=== PATIENT | female | born 1960 | race Caucasian/White ===

== ENCOUNTER → 2017-09-19 15:56 | Outpatient (CLI) | payer OTHER, SELFPAY ==
--- NOTE | 2017-09-19 15:59 | BI_ITS ---
MAMMOGRAPHY - BILATERAL SCREENING REASON FOR EXAM: Female, 56 years old. Routine annual screening examination. PERTINENT HISTORY: Sister with breast cancer. History of prior bilateral breast reduction surgery. TECHNIQUE: Digital bilateral breast cristofer (3D mammographic acquisition) in the CC and MLO projections. 2-D mediolateral oblique (MLO) and craniocaudad (CC) views of both breasts were obtained. CAD: Full Field Digital Mammography with Computer Added Detection was performed. COMPARISON: Comparison is made with prior study dated August 25, 2016 and July 13, 2015. FINDINGS: Breast Composition: The breasts are almost entirely fatty. There are no dominant masses or suspicious calcifications. Once again, tissue clip markers are seen in both breast from prior biopsies. Since prior study, the patient underwent a biopsy of the right retroareolar nodular density. Retroareolar nodular density is not seen at this time.. No other significant abnormalities are identified. There has been no significant change since the prior study. BI/SCREENING MAMM (CAD), BILAT IMPRESSION: Stable bilateral screening mammogram. Yearly follow-up mammogram recommended. (A) ASSESSMENT CATEGORY: BIRADS Category 2: Benign. A letter regarding these results will be sent to the patient by the facility within 30 days. Approximately 10% of breast cancers are not detected by mammography. A normal mammogram should not delay biopsy of a clinically suspicious abnormality. [id number] Electronically Signed: Segundo Farr MD at 10:04 EDT Tel [phone], Service support ,
== END ==
PROVIDERS: Family Provider Family Medicine; PCP Family Medicine; Visit Provider Obstetrics & Gynecology
DX: Z12.31 Encounter for screening mammogram for malignant neoplasm of breast (principal)
CPT/HCPCS: 77063; 77067

== ENCOUNTER → 2018-01-02 10:47 | Outpatient (CLI) | payer OTHER, SELFPAY ==
--- NOTE | 2018-01-02 10:58 | EKG12_ITS ---
Test Reason : PRE OP Blood Pressure : / mmHG Vent. Rate : 079 BPM Atrial Rate : 079 BPM P-R Int : 168 ms QRS Dur : 078 ms QT Int : 372 ms P-R-T Axes : 056 -15 057 degrees QTc Int : 426 ms Normal sinus rhythm Possible Left atrial enlargement Low voltage QRS Borderline ECG Confirmed by DULCE SWANSON, MONTY ([id number]), material expeditor SEKOU ORTIZ ([id number]) on 01/04/2018 1:43:18 PM Referred By: Rolando Quevedo Confirmed By:MONTY CARDONA MD
[2018-01-02 11:06] LABS: Hematocrit 43.3 % (37-47); Hemoglobin 15.2 g/dl (12.0-15.0); Mean Corp Hgb Conc 35.1 g/gl (32-36); Mean Corpuscular Volume 88.4 fL (81-99); Mean Platelet Vol. 10.7 fl (6.2-12.0); Platelet Count 186 K/mm3 (150-450); RBC Distribution Width CV 12.8 % (11.6-14.6); RBC Distribution Width SD 41.4 fl (35.1-43.9); White Blood Count 7.3 K/mm3 (4.4-11.0)
[2018-01-02 11:10] LABS: Scan Indicated on CBC? Y/N NO
[2018-01-02 11:37] LABS: Anion Gap 5 (5-15); BUN 21 mg/dL (7-18); BUN/Creat Ratio 19.8 RATIO (10-20); Calcium,Total 9.3 mg/dL (8.5-10.1); Chloride 108 mmol/L (98-107); Creatinine, Serum 1.06 mg/dL (0.55-1.02); EST Glomerular Filtration Rate 56 mL/min (>60); Est Glom Filt Rate - Afr Amer 68 mL/min (>60); Glucose 90 mg/dL (74-106); Potassium 4.1 mmol/L (3.5-5.1); Sodium Level 143 mmol/L (136-145)
== END ==
PROVIDERS: Family Provider Family Medicine; PCP Family Medicine; Visit Provider Physician Assistant
DX: Z01.818 Encounter for other preprocedural examination (principal)
CPT/HCPCS: 36415; 80048; 85027; 93005

== ENCOUNTER → 2018-03-08 11:57 | Outpatient (CLI) | payer OTHER, SELFPAY ==
--- NOTE | 2018-03-08 | LES_PTH ---
PATIENT: RAYMUNDO ULLOA LOC: [facility] U#:[id number] AGE/SX: 64/F ROOM: RE03/08/[address]: Dr. Bree Carrion MD : 1960 BED: DIS: SPEC #: [id number] RECD: 03/08/18 15:53 STATUS: ANDRAE DANIEL #: [id number] KULWANT: 03/08/18 00:[address]: Bree Carrion DEPT: SURGICAL PATHOLOGY RECD BY: Omid Powell Tissues: Temporal region Procedures: Surgery Specimen Level IV HEADER OPERATION: Suspicious lesion removal PRE-OP DIAGNOSIS: Suspicious lesion TISSUE SUBMITTED: Right anabaptist lesion removal MICROSCOPIC DIAGNOSIS Skin lesion of right anabaptist, biopsy: Benign keratosis, mildly inflamed. AM:jennifer 03/12/18 MICROSCOPIC DESCRIPTION Slides are reviewed. GROSS DESCRIPTION Received in fixative is one container labeled with the patient's name and designated right anabaptist. The specimen consists of a piece of young-white skin measuring 0.5 x 0.2 x 0.1 cm. The entire specimen is submitted in one cassette. / SJ:rg 03/11/18 TC:5 [facility]: [id number]
== END ==
PROVIDERS: Family Provider Family Medicine; PCP Family Medicine; Visit Provider Family Medicine
DX: L98.8 Other specified disorders of the skin and subcutaneous tissue (principal)
CPT/HCPCS: 88305

== ENCOUNTER → 2018-10-16 | Outpatient (CLI) | payer OTHER, SELFPAY ==
--- NOTE | 2018-10-16 11:01 | BI_ITS ---
MAMMOGRAPHY - BILATERAL SCREENING REASON FOR EXAM: Female, 57 years old. Routine annual screening examination. PERTINENT HISTORY: Sister with breast cancer. History of prior bilateral breast reduction and left excisional breast biopsy. TECHNIQUE: Digital bilateral breast cristofer (3D mammographic acquisition) in the CC and MLO projections. 2-D mediolateral oblique (MLO) and craniocaudad (CC) views of both breasts were obtained. CAD: Full Field Digital Mammography with Computer Added Detection was performed. COMPARISON: Comparison is made with prior study dated September 19, 2017 and August 25, 2016. FINDINGS: Breast Composition: The breasts are almost entirely fatty. There are no dominant masses or suspicious calcifications. Stable post surgical changes in the retroareolar region of the right breast in keeping with history of prior excisional biopsy. A tissue clip marker is seen within the small nodular density in the retroareolar region of the right breast. A tissue clip marker is also seen in the upper deep lateral portion of the left breast. No other significant abnormalities are identified. There has been no significant change since the prior study. BI/SCREENING MAMM (CAD), BILAT IMPRESSION: Stable bilateral screening mammogram. Yearly follow-up mammogram recommended. (A) ASSESSMENT CATEGORY: BIRADS Category 2: Benign. A letter regarding these results will be sent to the patient by the facility within 30 days. Approximately 10% of breast cancers are not detected by mammography. A normal mammogram should not delay biopsy of a clinically suspicious abnormality. [id number] Electronically Signed: Segundo Farr, at 15:06 EDT , Service support ,
== END | disposition home or self-care (01) ==
LOC: OPBI 10:59
PROVIDERS: Family Provider Family Medicine; PCP Family Medicine; Referring Provider Obstetrics & Gynecology; Visit Provider Obstetrics & Gynecology
DX: Z12.31 Encounter for screening mammogram for malignant neoplasm of breast (principal)
CPT/HCPCS: 77063; 77067

== ENCOUNTER 2019-05-02 13:35 | Emergency (ER) | payer OTHER, SELFPAY ==
[2019-05-02 13:37] VITALS: BP 115/75; PULSE 90; RESP 16; TEMP 36.4; O2SAT 99; BMI 23.6
--- NOTE | 2019-05-02 14:17 | RAD_ITS ---
STUDY: X-RAY - RIGHT KNEE REASON FOR EXAM: Female, 58 years old. Pain following injury. TECHNIQUE: 4 view(s) of the knee. COMPARISON: None. FINDINGS: Normal visualized distal femur. Normal visualized proximal tibia and fibula. Normal proximal tibiofibular articulation. Normal medial femorotibial compartment. Normal lateral femorotibial compartment. Normal patellofemoral articulation. The soft tissue structures are unremarkable. RAD/Knee 4 or More Views IMPRESSION: Normal x-ray examination of the knee. Electronically Signed: Segundo Farr, at 15:04 EST , Service support ,
--- NOTE | 2019-05-02 15:13 | ED.VISSUMM ---
- ER Visit Summary Date of Service: 05/02/19 Chief Complaint: [Right knee injury] History of Present Illness: The patient is a 58 F [presents the emergency department complaint of a right knee injury that occurred 3 days ago. Patient states that she was coming down the steps when she felt like her knee sort of gave out. Patient continues to complain of pain with standing from seated position as well as with walking up or down steps. Patient felt that may be at one point her patella felt like it needed a pop. She has an appointment scheduled with orthopedics but not till May.] Physical Examination: [HEENT-PERRLA, EOMI. Cranial nerves II through XII grossly intact. TMs clear. Mucous membranes moist. No adenopathy. Cardiovascular-regular rate and rhythm without murmur or ectopy Lungs-clear to auscultation, chest wall stable without crepitus or subcu emphysema Abdomen-normoactive bowel sounds, soft, nontender, no rebound or rigidity, no peritoneal signs. Extremities-intact ?4, normal range of motion, normal pulses, atraumatic area of the right knee-there is no effusion. There is no erythema or warmth. Patient has good range of motion flexion extension of the knee. She is neurovascular intact distally. Ligamentously stable. Negative Lockman's test.] Test Results: [The left knee obtained showed no fractures. No effusion noted.] Emergency Department Course and Treatment: [Was given a knee immobilizer] Treatment Plan: [Patient to use ibuprofen or Tylenol for discomfort. Patient to use her knee immobilizer for support. Patient to follow-up with orthopedics.] Patient understands I cannot rule out a ligamentous injury or meniscal injury and she may need further evaluation with possibly including MRI to evaluate further. Disposition: [Discharged home in stable condition.] Impression: Right knee sprain-possible internal derangement. This note was generated with [employer] dictation software. It may contain incorrect words, spelling, and punctuation that were not noted in review of the chart prior to signing ED Disposition - Plan for ED Patient: Instructions: KNEE PAIN, Meniscus Injury (Possible) Referrals: Bree Carrion MD [Primary Care Provider] - Jlues Garza MD [STAFF PHYSICIAN] - 5-7 Days
[2019-05-02 16:08] VITALS: BP 133/62; PULSE 74; RESP 16; O2SAT 99
== END 2019-05-02 16:09 | disposition home or self-care (01) ==
LOC: ED 14:07
PROVIDERS: Emergency Provider Emergency Medicine; Family Provider Family Medicine; PCP Family Medicine
DX: S83.91XA Sprain of unspecified site of right knee, initial encounter (principal); X58.XXXA Exposure to other specified factors, initial encounter; Y93.01 Activity, walking, marching and hiking; Y92.009 Unspecified place in unspecified non-institutional (private) residence as the place of occurrence of the external cause; Y99.8 Other external cause status
CPT/HCPCS: 73564; 99283

== ENCOUNTER → 2019-05-20 09:22 | Outpatient (CLI) | payer OTHER, SELFPAY ==
[2019-05-02 13:37] VITALS: BMI 23.6
--- NOTE | 2019-05-20 09:30 | BD_ITS ---
STUDY: DUAL ENERGY X-RAY ABSORPTIOMETRY / DXA REASON FOR EXAM: Female, 58 years old. The patient is postmenopausal. Loss of height. TECHNIQUE: Bone Mineral Density (BMD) measurements of lumbar spine and bilateral hips were obtained. COMPARISON: None. FINDINGS: Lumbar Spine (L1-L4): g/cm2 (1.586) / T-score (3.2) / Z-score (4.4) Findings are suggestive of normal bone density with a low fracture risk. Left Femur Total: g/cm2 (0.931) / T-score (-0.6) / Z-score (0.3) Left Femoral Neck: g/cm2 (0.916) / T-score (-0.9) / Z-score (0.4) Right Femur Total: g/cm2 (0.989) / T-score (-0.1) / Z-score (0.8) Right Femoral Neck: g/cm2 (0.880) / T-score (-1.1) / Z-score (0.1) BD/Dexa Bone Density Study IMPRESSION: The patient is considered osteopenic as outlined below according to World Tyson Organization (WHO) criteria with a low fracture risk. Reference Information: The T-score is the number of standard deviations above or below the standard which is normal for young adults at their peak bone mineral density. The World Health Organization (WHO) interprets the T-scores as follows: Above -1 Normal bone density Between -1 and -2.5 Osteopenia Equal to / or below -2.5 Osteoporosis As a practical clinical guideline, osteopenia may be graded as follows: Mild -1 through -1.5 Moderate -1.6 through -2.0 Severe -2.1 through -2.4 The Z-score is the number of standard deviations above or below age-matched controls. A Z-score of less than -1.5 would be considered abnormal. References: 1. NIH Osteoporosis and Related Bone Diseases http://www.osteo.org 2. International Society for Clinical Densitometry http://www.iscd.org 3. National Osteoporosis Foundation http://www.nof.org Electronically Signed: Segundo Farr, at 12:48 EST , Service support ,
== END ==
PROVIDERS: Family Provider Family Medicine; PCP Family Medicine; Referring Provider Family Medicine; Visit Provider Family Medicine
DX: Z00.00 Encounter for general adult medical examination without abnormal findings (principal)
CPT/HCPCS: 77080

== ENCOUNTER → 2019-10-31 | Outpatient (CLI) | payer OTHER, SELFPAY ==
--- NOTE | 2019-10-31 10:23 | BI_ITS ---
MAMMOGRAPHY - BILATERAL SCREENING REASON FOR EXAM: Female, 58 years old. Routine annual screening examination. PERTINENT HISTORY: Sister with breast cancer. Remote left excisional breast biopsy and bilateral breast reduction surgery. TECHNIQUE: Digital bilateral breast kemal (3D mammographic acquisition) in the CC and MLO projections. 2-D mediolateral oblique (MLO) and craniocaudad (CC) views of both breasts were obtained. CAD: Full Field Digital Mammography with Computer Added Detection was performed. COMPARISON: Comparison is made with prior examination dated October 16, 2018 and September 20, 2007. FINDINGS: Breast Composition: The breasts are almost entirely fatty. There are no dominant masses or suspicious calcifications. Stable calcified nodule in the retroareolar region of the right breast. Tissue clip marker is once again seen in the small nodular density in the retroareolar region of the right breast. A tissue clip marker is also seen in the upper deep lateral aspect of the left breast. No other significant abnormalities are identified. There has been no significant change since the prior study. BI/SCREEN MAMM (CAD) W/KEMAL BILAT IMPRESSION: Stable bilateral screening mammogram. Yearly follow-up mammogram recommended. (A) ASSESSMENT CATEGORY: BIRADS Category 2: Benign. A letter regarding these results will be sent to the patient by the facility within 30 days. Approximately 10% of breast cancers are not detected by mammography. A normal mammogram should not delay biopsy of a clinically suspicious abnormality. [id number] Electronically Signed: Segundo Farr, at 12:23 EDT , Service support ,
== END | disposition home or self-care (01) ==
LOC: OPBI 10:21
PROVIDERS: PCP Family Medicine; Referring Provider Obstetrics & Gynecology; Visit Provider Obstetrics & Gynecology
DX: Z12.31 Encounter for screening mammogram for malignant neoplasm of breast (principal)
CPT/HCPCS: 77063; 77067

== ENCOUNTER → 2020-03-31 | Outpatient (CLI) | payer OTHER, SELFPAY ==
[2020-03-31 18:02] LABS: Absolute Lymphocyte Count 1.87 X10^3/uL (0.83-4.51); Absolute Neutrophil Count 3.2 X10^3/uL (2.0-7.7); Basophil# 0.05 X10^3/uL; Basophil% 0.8 % (0-1); Eosinophil# 0.22 X10^3/uL; Eosinophils% 3.7 % (0-5); Hematocrit 43.6 % (37-47); Hemoglobin 14.3 g/dL (12.0-15.0); Lymphocyte # 1.87 X10^3/ul (4.0); Lymphocyte % 31.6 % (19-41); Mean Corp Hgb Conc 32.8 g/dL (32-36); Mean Corpuscular Hgb 29.6 pg (27.0-32.0); Mean Corpuscular Volume 90.3 fL (81-99); Mean Platelet Vol. 10.8 fl (6.2-12.0); Monocyte# 0.55 X10^3/uL; Monocyte% 9.3 % (0-10); NRBC Flagged by Analyzer 0 % (0-5); Neutrophil % 54.3 % (47-70); Platelet Count 198 K/mm3 (150-450); RBC Distribution Width CV 12.2 % (11.6-14.6); RBC Distribution Width SD 40.3 fl (35.1-43.9); Red Blood Count 4.83 M/mm3 (4.2-5.4); White Blood Count 5.9 K/mm3 (4.4-11.0)
[2020-03-31 18:43] LABS: ALB/GLOB Ratio 1.2 RATIO (0.9-2.4); AST(SGOT) 14 U/L (15-37); Alanine Aminotransfer ALT/SGPT 23 U/L (13-56); Albumin, Serum 3.6 g/dL (3.2-5.0); Alkaline Phosphatase 67 U/L (45-117); Anion Gap 6 (5-15); BUN 16 mg/dL (7-18); BUN/Creat Ratio 16.7 RATIO (10-20); Calcium,Total 8.5 mg/dL (8.5-10.1); Chloride 105 mmol/L (98-107); Creatinine, Serum 0.96 mg/dL (0.55-1.02); EST Glomerular Filtration Rate 63 mL/min (>60); Est Glom Filt Rate - Afr Amer 76 mL/min (>60); Globulin 2.9 g/dL (2.2-4.2); Glucose 91 mg/dL (74-106); Potassium 3.7 mmol/L (3.5-5.1); Protein, Total 6.5 g/dL (6.4-8.2); Sodium Level 142 mmol/L (136-145); Thyroid Stim Hormone (TSH) 2.12 uIU/mL (0.358-3.74)
== END | disposition home or self-care (01) ==
LOC: MTLAB 16:57
PROVIDERS: PCP Family Medicine; Referring Provider Family Medicine; Visit Provider Family Medicine
DX: L65.9 Nonscarring hair loss, unspecified (principal)
CPT/HCPCS: 36415; 80053; 84443; 85025

== ENCOUNTER → 2020-11-10 14:58 | Outpatient (CLI) | payer OTHER, SELFPAY ==
[2020-11-10 15:33] LABS: Color, Urine Yellow (Yellow); Glucose, Dipstick Normal (Normal); Ketone-Dipstick Negative (Negative); Leukocyte Esterase-Dipstick 500 /ul (Negative); Nitrite-Dipstick Negative (Negative); Occult Blood-Urine 50 /ul (Negative); Protein-Dipstick 30 mg/dl (Negative); Specific Gravity, Urine 1.015 (1.002-1.030); Urine Bilirubin Dipstick Negative (Negative); Urine Clarity Cloudy (Clear); Urine Urobilinogen Normal (Normal)
== END ==
PROVIDERS: PCP Family Medicine; Referring Provider Urology; Visit Provider Urology
DX: R31.0 Gross hematuria (principal)
CPT/HCPCS: 81002

== ENCOUNTER → 2021-03-21 13:40 | Outpatient (CLI) | payer OTHER, SELFPAY ==
--- NOTE | 2021-03-21 13:42 | BI_ITS ---
MAMMOGRAPHY - BILATERAL SCREENING 3-D TOMOSYNTHESIS REASON FOR EXAM: Female, 60 years old. SCREENING PERTINENT HISTORY: No significant family history. TECHNIQUE: 2-D mammograms and 3-D Tomosynthesis of the breast (s) were performed. CAD was performed. COMPARISON: 10/31/2019 FINDINGS: The breast composition is composed of scattered fibroglandular density. Scattered benign calcifications are seen. No dense spiculated masses or suspicious microcalcifications are identified. No architectural distortion is identified. There is no skin thickening or retraction. There has been no significant change since the prior study. BI/SCRN MAMM (CAD)W/KEMAL BILAT IMPRESSION: No mammographic signs of malignancy. Routine yearly mammograms recommended. ASSESSMENT CATEGORY: BIRADS Category 1: Negative. A letter regarding these results will be sent to the patient by the facility within 30 days. FOLLOW UP RECOMMENDATION: Yearly follow up mammogram recommended. (A) Approximately 10% of breast cancers are not detected by mammography. A normal mammogram should not delay biopsy of a clinically suspicious abnormality. Electronically Signed: Brent Cole MD at 18:21 EDT Tel , Service support ,
== END ==
PROVIDERS: PCP Family Medicine; Referring Provider Obstetrics & Gynecology; Visit Provider Obstetrics & Gynecology
DX: Z12.31 Encounter for screening mammogram for malignant neoplasm of breast (principal)
CPT/HCPCS: 77063; 77067

== ENCOUNTER 2021-06-06 11:57 | Emergency (ER) | payer OTHER, SELFPAY ==
[2021-06-06 11:58] VITALS: BP 116/83; PULSE 87; RESP 18; TEMP 36.1; O2SAT 100; BMI 26.6
--- NOTE | 2021-06-06 12:22 | RAD_ITS ---
STUDY: X-RAY - RIGHT WRIST REASON FOR EXAM: Female, 60 years old. Pain TECHNIQUE: 3 view(s) of the wrist were obtained. COMPARISON: None. FINDINGS: Normal visualized distal radius and ulna. There is degenerative arthrosis of the radiocarpal articulation. Normal distal radioulnar articulation. Normal carpal bones. Normal carpal articulations. There is degenerative arthrosis of the carpometacarpal articulation of the thumb. Normal second through fifth carpometacarpal articulations. There are 2 small well corticated bony fragments along the ventral aspect of the distal radiocarpal joint suggestive of old injury. Normal visualized metacarpal bones. The soft tissue structures are unremarkable. RAD/Wrist min 3 Views IMPRESSION: Degenerative arthrosis of the first carpometacarpal joint. Degenerative arthrosis of the radiocarpal joint. Electronically Signed: Segundo Farr MD at 12:48 EST , Service support ,
--- NOTE | 2021-06-06 12:25 | EX.ED.UPPERE ---
HPI History of Present Illness Chief Complaint: Upper Extremity Injury Narrative Narrative: Patient presenting for evaluation secondary to a right wrist injury. Patient reports that she was lifting a bag with wine bottles in it and injured her right wrist. She reports pain over the ulnar side of the wrist that goes up into her forearm. No numbness or weakness. Patient states she has been wearing a brace and icing it that has not alleviated the pain. Patient denies any prior injuries. She denies any fevers chills night sweats. She denies any skin changes. Review of systems otherwise negative. [facility] Medical History Depression Home Medications bupropion HCl [Wellbutrin Sr] 200 mg PO BID 12/16/15 [History Last Taken Unknown] multivitamin [Daily Multiple Vitamin] 1 ea PO DAILY 12/16/15 [History Last Taken Unknown] nitrofurantoin monohyd/m-cryst 100 mg PO QODAY 12/16/15 [History Last Taken Unknown] solifenacin [Vesicare] 10 mg PO DAILY 12/16/15 [History Last Taken Unknown] docusate sodium 1 - 2 tab PO QHS 05/02/19 [History Last Taken Unknown] Allergy/AdvReac Type Severity Reaction Status Date / Time prednisone Allergy Rash Verified 06/06/21 11:58 sulfamethoxazole Allergy Rash Verified 06/06/21 11:58 [From Bactrim] trimethoprim [From Bactrim] Allergy Rash Verified 06/06/21 11:58 Social History Smoking Status: Never smoker ROS [facility] ED Constitutional Constitutional ED: Denies fever(s) Respiratory/Chest Respiratory/Chest: Denies cough or dyspnea Musculoskeletal Musculoskeletal: Reports other Details: Right wrist pain Integumentary Denies rash Neurologic Neurologic: Denies paresthesias or weakness Hematologic/Lymphatic Hematologic/Lymphatic: Denies easy bleeding or easy bruising EXAM Physical Exam Const Vital Signs: 06/06/21 11:58 Temperature 97 F L Temperature Source Temporal Pulse Rate 87 Respiratory Rate 18 Blood Pressure 116/83 H Blood Pressure Mean 94 Pulse Ox 100 Oxygen Delivery Method Room Air Positive well nourished and well developed General Appearance ED: well developed HEENT normocephalic Eyes EOMs intact bilaterally Neck full ROM Resp normal respiratory effort Cardio regular rate and regular rhythm Extremity Extremity Narrative: Examination of the patient's right wrist shows some pain on palpation of the ulnar side of the wrist with normal range of motion. Patient does have some pain with ulnar deviation at the wrist. No pain over the anatomical snuffbox. No abnormal skin changes. MDM MDM MDM Narrative Medical decision making narrative: Patient presented secondary to pain in the wrist. X-ray was obtained by my personal review as well as radiology is noted to be negative. Patient has a element of tendinitis likely given her physical exam. She was recommended to continue wearing her wrist brace, use NSAIDs, and ice the area. Patient was discharged in stable condition. Discharge Plan Triage Chief Complaint: Upper Extremity Injury ED Provider: Alonzo Knapp Dx/Rx/DC Orders Clinical Impression: Right wrist tendinitis Instructions: ED Wrist Sprain Prescriptions: No Action multivitamin [Daily Multiple] 1 EACH tablet 1 ea PO DAILY RF: 0 bupropion HCl [Wellbutrin SR] 200 MG tablet 200 mg PO BID RF: 0 nitrofurantoin monohyd/m-cryst 100 MG capsule 100 mg PO QODAY RF: 0 solifenacin [Vesicare] 10 MG tablet 10 mg PO DAILY RF: 0 docusate sodium 100 MG capsule 1 - 2 tab PO QHS RF: 0 Primary Care Provider: Bree Carrion Referrals: Bree Carrion MD [Primary Care Provider] - As Needed Disposition Disposition: Home, Self Care
[2021-06-06 14:33] VITALS: PULSE 84; RESP 16; O2SAT 98
== END 2021-06-06 14:34 | disposition home or self-care (01) ==
PROVIDERS: Emergency Provider Emergency Medicine; PCP Family Medicine
DX: M77.8 Other enthesopathies, not elsewhere classified (principal); F32.A Depression, unspecified
CPT/HCPCS: 73110; 99282

== ENCOUNTER 2021-08-29 12:21 | Outpatient (CLI) | payer BC, SELFPAY ==
[2021-08-29 13:26] LABS: Absolute Lymphocyte Count 2.13 X10^3/uL (0.83-4.51); Absolute Neutrophil Count 2.9 X10^3/uL (2.0-7.7); Basophil# 0.07 X10^3/uL; Basophil% 1.2 % (0-1); Eosinophil# 0.22 X10^3/uL; Eosinophils% 3.7 % (0-5); Hematocrit 43.5 % (37-47); Hemoglobin 15.3 g/dL (12.0-15.0); Lymphocyte # 2.13 X10^3/ul (0.83-4.51); Lymphocyte % 35.9 % (19-41); Mean Corp Hgb Conc 35.2 g/dL (32-36); Mean Corpuscular Hgb 30.8 pg (27.0-32.0); Mean Corpuscular Volume 87.5 fL (81-99); Mean Platelet Vol. 11.3 fl (6.2-12.0); Monocyte# 0.57 X10^3/uL; Monocyte% 9.6 % (0-10); NRBC Flagged by Analyzer 0 % (0-5); Neutrophil # 2.93 X10^3/uL (2.7-7.7); Neutrophil % 49.3 % (47-70); Platelet Count 212 K/mm3 (150-450); RBC Distribution Width CV 12.5 % (11.6-14.6); RBC Distribution Width SD 40.3 fl (35.1-43.9); Red Blood Count 4.97 M/mm3 (4.2-5.4); White Blood Count 5.9 K/mm3 (4.4-11.0)
[2021-08-29 14:06] LABS: Vitamin B12 1088 pg/mL (211-911); Vitamin D,25 Hydroxy 39.7 ng/mL
[2021-08-29 14:45] LABS: Ferritin 73 ng/mL (8-252); Iron 108 ug/dL (50-170); Iron Binding Capacity,Total 359 ug/dL (250-450); T4 Free Direct 0.99 ng/dL (0.76-1.46); Thyroid Stim Hormone (TSH) 2.73 uIU/mL (0.358-3.74)
[2021-09-01 17:10] LABS: Anti-Nuclear Antibody Test Negative (.)
[2021-09-04 18:07] LABS: Testosterone, % Free 1.43 % (0.50-2.80); Testosterone, Free 0.16 ng/dL (0.10-0.85); Testosterone, Total 11 ng/dL (3-67)
[2021-09-04 21:02] LABS: Androstenedione 38 ng/dL (17-99); Sex Hormone-binding Globulin 66.8 nmol/L (17.3-125.0)
[2021-09-04 21:03] LABS: Zinc, Plasma or Serum 90 ug/dL (44-115)
== END 2021-08-29 23:59 | disposition home or self-care (01) ==
PROVIDERS: PCP Family Medicine; Referring Provider Dermatology; Visit Provider Dermatology
DX: L65.0 Telogen effluvium (principal); L64.8 Other androgenic alopecia; L21.8 Other seborrheic dermatitis
CPT/HCPCS: 36415; 82157; 82306; 82607; 82627; 82652; 82728; 82746; 83540; 83550; 84270; 84402; 84403; 84439; 84443; 84630; 85025; 86038; 82626

== ENCOUNTER → 2022-04-03 | Outpatient (CLI) | payer BC, SELFPAY ==
--- NOTE | 2022-04-03 09:57 | BI_ITS ---
MAMMOGRAPHY - BILATERAL SCREENING REASON FOR EXAM: Female, 61 years old. Routine annual screening examination. PERTINENT HISTORY: Sister with breast cancer. History of prior bilateral breast reduction surgery. TECHNIQUE: Digital bilateral breast kemal (3D mammographic acquisition) in the CC and MLO projections. 2-D mediolateral oblique (MLO) and craniocaudad (CC) views of both breasts were obtained. CAD: Full Field Digital Mammography with Computer Added Detection was performed. COMPARISON: Comparison is made with prior study dated 03/21/2021 and 10/31/2019. FINDINGS: Breast Composition: The breasts are almost entirely fatty. There are no dominant masses or suspicious calcifications. A tissue clip marker is once again seen in the deep retroareolar region of the right breast. A tissue clip marker is also seen in the upper lateral aspect of the left breast. Stable small benign-appearing bilateral axillary lymph nodes. No other significant abnormalities are identified. There has been no significant change since the prior study. BI/SCRN MAMM (CAD)W/KEMAL BILAT IMPRESSION: Stable bilateral screening mammogram. Yearly follow-up mammogram recommended. (A) ASSESSMENT CATEGORY: BIRADS Category 2: Benign. A letter regarding these results will be sent to the patient by the facility within 30 days. Approximately 10% of breast cancers are not detected by mammography. A normal mammogram should not delay biopsy of a clinically suspicious abnormality. [id number] Electronically Signed: Segundo Farr MD at 11:09 EDT ,
== END | disposition home or self-care (01) ==
LOC: OPBI 09:55
PROVIDERS: PCP Family Medicine; Visit Provider Obstetrics & Gynecology
DX: Z12.31 Encounter for screening mammogram for malignant neoplasm of breast (principal); Z80.3 Family history of malignant neoplasm of breast
CPT/HCPCS: 77063; 77067

== ENCOUNTER → 2023-03-27 | Outpatient (CLI) | payer BC, SELFPAY ==
--- NOTE | 2023-03-27 12:00 | BI_ITS ---
MAMMOGRAPHY - BILATERAL SCREENING REASON FOR EXAM: Female, 62 years old. Routine annual screening examination. PERTINENT HISTORY: Sister with breast cancer. Prior right breast biopsy. Prior bilateral breast reduction surgery. TECHNIQUE: Digital bilateral breast kemal (3D mammographic acquisition) in the CC and MLO projections. 2-D mediolateral oblique (MLO) and craniocaudad (CC) views of both breasts were obtained. CAD: Full Field Digital Mammography with Computer Added Detection was performed. COMPARISON: Comparison is made with prior examination dated April 03, 2022 and March 21, 2021. FINDINGS: Breast Composition: The breasts are almost entirely fatty. There are no dominant masses or suspicious calcifications. A tissue clip marker is once again seen in the deep retroareolar region of the right breast. A tissue clip marker is also seen in the upper lateral aspect of the left breast. No other significant abnormalities are identified. There has been no significant change since the prior study. BI/SCRN MAMM (CAD)W/KEMAL BILAT IMPRESSION: Stable bilateral screening mammogram. Yearly follow-up mammogram recommended. (A) ASSESSMENT CATEGORY: BIRADS Category 2: Benign. A letter regarding these results will be sent to the patient by the facility within 30 days. Approximately 10% of breast cancers are not detected by mammography. A normal mammogram should not delay biopsy of a clinically suspicious abnormality. [id number] Electronically Signed: Segundo Farr MD at 15:24 EDT ,
== END | disposition home or self-care (01) ==
LOC: OPBI 11:59
PROVIDERS: PCP Family Medicine; Referring Provider Obstetrics & Gynecology; Visit Provider Obstetrics & Gynecology
DX: Z12.31 Encounter for screening mammogram for malignant neoplasm of breast (principal)
CPT/HCPCS: 77063; 77067

== ENCOUNTER → 2025-02-12 | Outpatient (CLI) | payer MEDICARE, OTHER, SELFPAY ==
--- NOTE | 2025-02-12 12:58 | VDLE_ITS ---
Reason For Study Reason For Study: Bilateral leg edema RIGHT LEFT CFV is compressible, spontaneous, phasic, competent CFV is compressible, spontaneous, phasic, competent, and demonstrates normal augmentation. and demonstrates normal augmentation. FV is compressible, spontaneous, phasic, competent FV is compressible, spontaneous, phasic, competent and demonstrates normal augmentation. and demonstrates normal augmentation. POP V is compressible, spontaneous, phasic, competent POP V is compressible, spontaneous, phasic, competent and demonstrates normal augmentation. and demonstrates normal augmentation. T/P Trunk is compressible. T/P Trunk is compressible. PTV is compressible. PTV is compressible. RT PerV is compressible. LT PerV is compressible. SFJ is competent and measures 0.45 cm. SFJ is competent and measures 0.53 cm. GSV proximal thigh measures 0.28 x 0.28 cm. GSV proximal thigh measures 0.25 x 0.27 cm. GSV at knee measures 0.34 x 0.38 cm. GSV above knee is competent. GSV is competent throughout. GSV at knee measures 0.23 x 0.22 cm. SSV mid calf is competent and measures 0.21 x 0.22 GSV below knee is INCOMPETENT for greater than 0.5 cm. seconds. Procedure SSV mid calf is competent and measures 0.25 x 0.24 This is a venous duplex using B-mode, color flow and cm. spectral Doppler. Exam performed in department. Patient was scanned in reverse Trendelenburg position during reflux assessment. VL/Venous Duplex US - Alistair Extrem Interpretation Summary Deep veins of the bilateral lower extremities are patent and compressible segme ntally. There is no evidence of bilateral lower extremity deep vein thrombosis. The bilateral great saphenous veins appea r patent and compressible segmentally. Positive for reflux in the left great saphenous vein below the knee Ordering Physician: Abraham Dorsey Referring Physician: Abraham Dorsey Performed By: Willinger, Fouzia, RVT
== END | disposition home or self-care (01) ==
LOC: CVS 12:47
PROVIDERS: PCP Family Medicine; Referring Provider Family Medicine; Visit Provider Family Medicine
DX: R60.0 Localized edema (principal)
CPT/HCPCS: 93970

== ENCOUNTER → 2025-03-05 | Outpatient (CLI) | payer MEDICARE, OTHER, SELFPAY ==
--- NOTE | 2025-03-05 14:25 | BD_ITS ---
PROCEDURE: DEXA BONE DENSITY STUDY 03/05/2025 REASON FOR EXAM: F, age 64 y/o . Postmenopausal. TECHNIQUE: Procedure Code: BDDBD Modality: DX Procedure: DEXA BONE DENSITY STUDY COMPARISON: None FINDINGS: BMD and T-SCORES Lumbar spine: 1.109 g/cm2, T-score 0.8 Left femoral neck: 0.652 g/cm2, T-score -1.8 Left total hip: 0.905 g/cm2, T-score -0.3 Right femoral neck: 0.679 g/cm2, T-score -1.5 Right total hip: 0.935 g/cm2, T-score -0.1 The World Health Organization has defined the following categories based on bone density: Normal bone density: T-score equal to or greater than -1.0 Osteopenia: T-score between -1.0 and -2.5 Osteoporosis: T-score equal to or less than -2.5 FRAX (or Comparable) Fracture Risk Assessment: 10 Year Probability of Fracture: Major Osteoporotic Fracture: 27% Hip Fracture: 2.9% (Note: FRAX is not to be reported in setting of normal range bone density, osteoporosis on DEXA, known history of osteoporosis, prior osteoporotic hip or vertebral fracture, or for any patient undergoing pharmacological treatment for bone loss.) The National Osteoporosis Foundation (NOF) recommends pharmacological treatment for patients with a FRAX 10-year risk of 3% or higher for a hip fracture, or 20% or higher for a major osteoporotic fracture, to prevent osteoporosis and reduce fracture risk. The patient not meet the pharmacological treatment recommendations for prevention of osteoporosis. BD/Dexa Bone Density Study IMPRESSION: OSTEOPENIA. Recommend follow-up as clinically warranted. Reading Location: [id number]
--- NOTE | 2025-03-05 14:26 | BI_ITS ---
EXAM: SCRN MAMM (CAD)W/KEMAL BILAT DATE: 03/05/2025 CLINICAL HISTORY: F, Age 64 y/o , SCREENING Sister with breast cancer. Prior stereotactic biopsy. TECHNIQUE: Procedure Code: [id number] Modality: MG Procedure: SCRN MAMM (CAD)W/KEMAL BILAT COMPARISON: Prior exam(s) dated March 27, 2023.. FINDINGS: TISSUE DENSITY: The breasts are almost entirely fatty. Bilateral Breast Mammographic Findings: No significant masses, calcifications or other abnormalities are identified. No suspicious masses, areas of developing architectural distortion, or suspicious calcifications. There has been no significant interval change. Stable bilateral tissue clip markers. BI/SCRN MAMM (CAD)W/KEMAL BILAT IMPRESSION: Stable bilateral screening mammogram. OVERALL FINAL ASSESSMENT BI-RADS 2: BENIGN RECOMMENDATION: Routine annual follow-up in 1 Year A letter with findings and recommendations will be mailed to the patient. Reading Location: [place] [id number]
== END | disposition home or self-care (01) ==
LOC: OPBD 14:22
PROVIDERS: PCP Family Medicine; Referring Provider Obstetrics & Gynecology; Visit Provider Obstetrics & Gynecology
DX: Z12.31 Encounter for screening mammogram for malignant neoplasm of breast (principal); Z13.820 Encounter for screening for osteoporosis; N95.8 Other specified menopausal and perimenopausal disorders
CPT/HCPCS: 77063; 77067; 77080